=== PATIENT | male | born 2000 | race Caucasian/White ===

== ENCOUNTER 2022-08-12 16:42 | Emergency (ER) | payer OTHER, SELFPAY ==
[2022-08-12 16:44] VITALS: BP 136/85; PULSE 78; RESP 14; TEMP 36.1; O2SAT 97; BMI 24.0
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
--- NOTE | 2022-08-12 17:05 | RAD_ITS ---
INDICATION: Pain EXAMINATION/TECHNIQUE: X-RAY - RIGHT XR Shoulder Min 2 Views COMPARISON: No previous relevant examinations available for comparison. FINDINGS: BONES/JOINTS: 1. There is normal bony alignment. Normal configuration the glenohumeral joint and normal appearance of the clavicle and acromioclavicular joint. 2. No fractures or dislocation noted. 3. Normal appearance of the visualized rib cage. SOFT TISSUES: No soft tissue swelling or gas. No radiopaque foreign body. OTHER: 1. Normal appearance of the visualized thoracic contents. RAD/Shoulder min 2 Views IMPRESSION: 1. No evidence fracture dislocation or malalignment involving the RIGHT shoulder. Electronically Signed: Cuba Qureshi MD at 17:23 EDT ,
== END 2022-08-12 18:24 | disposition home or self-care (01) ==
PROVIDERS: Emergency Provider Emergency Medicine; Visit Provider Emergency Medicine
DX: S46.011A Strain of muscle(s) and tendon(s) of the rotator cuff of right shoulder, initial encounter (principal); X50.0XXA Overexertion from strenuous movement or load, initial encounter; S41.031S Puncture wound without foreign body of right shoulder, sequela; Y24.9XXS Unspecified firearm discharge, undetermined intent, sequela
CPT/HCPCS: 73030; 99282

== ENCOUNTER 2023-07-13 21:52 | Emergency (ER) | payer OTHER, SELFPAY ==
[2023-07-13 21:53] VITALS: BP 147/85; PULSE 94; RESP 15; TEMP 36.9; O2SAT 99; BMI 25.1
--- NOTE | 2023-07-13 22:15 | EX.ED.VIS.EY ---
HPI History of Present Illness Chief Complaint: Eye Problem Narrative Narrative: 23-year-old male who denies significant past medical history presents with foreign body sensation in left eye. He states he thinks there is an eyelash embedded in his left lower lid. Was around 3 PM, 7 hours ago, when he states he was just standing there and felt a foreign body. He states his relative looked and thought they saw one of his eyelashes in his left lower lid. They tried to remove it but were unable to. Since then, he denies any loss of vision but his left eye is irritated, rated, and tearing more. He does not wear contact lenses. He denies significant past medical history. PFSH PFS Medical History no medical history Home Medications NK 07/13/23 [History Last Taken Unknown] Allergy/AdvReac Type Severity Reaction Status Date / Time No Known Allergies Allergy Verified 07/13/23 21:55 Social History Smoking Status: Former smoker ROS ROS ED ROS Narrative Constitutional: No fever, no chills. HEENT: No sore throat. No neck pain. No loss of vision. No rhinorrhea. Foreign body sensation left eye. Positive redness. Thinks black eyelashes clot in the left lower lid. EXAM Physical Exam Narrative Exam Narrative: Afebrile. Vital signs noted. Regular rate and rhythm. Lungs clear to auscultation bilaterally. Abdomen soft nontender with normoactive bowel sounds. Neurological examination nonfocal and nonlateralizing. Moves all extremities. Inspection of the left eye reveals mild conjunctival injection with a mild amount of tearing. No noted vision loss on examination. Left lower lid everted no evidence of foreign body. Const Vital Signs: 07/13/23 21:53 Temperature 98.4 F Temperature Source Temporal Pulse Rate 94 Respiratory Rate 15 Blood Pressure 147/85 H Blood Pressure Mean 105 Pulse Ox 99 Oxygen Delivery Method Room Air MDM MDM MDM Narrative Medical decision making narrative: The differential diagnosis is corneal abrasion versus retained foreign body of left eye. There was no large eyelash visualized in the left lower lid. After tetracaine, his upper lid will be everted as well. Visual acuity ordered. Fluorescein will also be instilled in his left eye to look for corneal abrasion. Upper eyelid was everted after tetracaine and there is no evidence of foreign body. His showed me a picture of a small eyelash in the left lateral quadrant of the lower lid. It was not there and it was swabbed with a cotton swab with no evidence of foreign body. Tetracaine examination did not show any fluorescein streaming, there was no large corneal abrasion. However, patient felt improved after tetracaine so I feel there may be a small corneal abrasion. He will be treated with antibiotic ointment and referred to ophthalmology. I feel he can be discharged to follow-up. Return instructions to the emergency department were reviewed. Disposition is discharged home in stable condition. History & Record Review Discussion w/independent historian: Patient Discharge Plan Triage Chief Complaint: Eye Problem ED Provider: Rancho Castellano Dx/Rx/DC Orders Prescriptions: No Action NK Primary Care Provider: Care Physician,No Primary Referrals: Care Physician,No Primary [Primary Care Provider] -
[2023-07-13] MEDS: Tetracaine 0.5% Ophthalmic Bottle 1 DRP OPHTHALMIC (22:44)
[2023-07-13] MEDS: Fluorescein 1 MG STRIP 1 STRIP OPHTHALMIC (22:45)
[2023-07-13] MEDS: Erythromycin Ophthalmic (NSY) 1 GM OPTH.TUBE 1 APPLIC LEFT EYE (23:00)
== END 2023-07-13 23:02 | disposition home or self-care (01) ==
PROVIDERS: Emergency Provider Emergency Medicine; Visit Provider Emergency Medicine
DX: T15.92XA Foreign body on external eye, part unspecified, left eye, initial encounter (principal); Z87.891 Personal history of nicotine dependence; X58.XXXA Exposure to other specified factors, initial encounter
CPT/HCPCS: 99284